=== PATIENT | male | born 2000 | race Caucasian/White ===

== ENCOUNTER 2021-06-13 17:19 | Emergency (ER) | payer OTHER ==
[~2021-06-13] VITALS: Ht 172.7 cm; Wt 95.7 kg
[2021-06-13 17:21] VITALS: BP 132/83
--- NOTE | 2021-06-13 17:40 | NUR ---
20 Y/O MALE BIB SELF C/O SOB TODAY, SATTING AT 99% ON ROOM AIR, LUNG SOUNDS CLEAR, DENIES ANY RUNNY NOSE/CONGESTION. PMH: DENIES NKA
[2021-06-13] MEDS ORDERED: NACL 0.9% 1,000 ML IV ONE (18:30)
[2021-06-13] MEDS ORDERED: ONDANSETRON 4 MG/2 ML VIAL IVP ONE (18:30)
--- NOTE | 2021-06-13 18:43 | NUR ---
RAD AT BEDSIDE
[2021-06-13 18:58] LABS: BASOPHILS # (AUTO) 0.3 K/uL (0.00-0.22); BASOPHILS % (AUTO) 1.7 % (0.0-2.0); EOSINOPHILS % (AUTO) 0.2 % (0.0-4.0); HEMATOCRIT 47.5 % (36-52); HEMOGLOBIN 16.5 g/dL (12.0-18.0); LYMPHOCYTES # (AUTO) 0.4 K/uL (2.0-11.5); LYMPHOCYTES % (AUTO) 2.8 % (20.5-51.1); MEAN CORPUSCULAR HEMOGLOBIN 31 pg (27-31); MEAN CORPUSCULAR HGB CONC 35 g/dL (33-37); MEAN CORPUSCULAR VOLUME 89.4 fL (80-94); MONOCYTES # (AUTO) 0.7 K/uL (0.8-1.0); MONOCYTES % (AUTO) 4.3 % (1.7-9.3); NEUTROPHILS # (AUTO) 13.7 K/uL (1.8-7.7); PLATELET COUNT (AUTO) 226 K/uL (140-450); RED BLOOD CELL COUNT(AUTO) 5.32 MIL/uL (4.20-6.10); RED CELL DISTRIBUTION WIDTH 12.3 % (11.6-13.7); WHITE BLOOD COUNT (AUTO) 15.1 K/uL (4.5-11.0)
--- NOTE | 2021-06-13 19:16 | NUR ---
REPORT RECEIVED ROM ANDREW REZA. CONTINUITY OF PT CARE AT THIS TIME.
--- NOTE | 2021-06-13 19:22 | NUR ---
Pt report given to TIARA SEGURA. Transfer of care at this time.
--- NOTE | 2021-06-13 19:24 | NUR ---
Note caryn in EDM - 06/13/21 at 2002 by DHRUV PT LAYING IN BED LOCKED IN LOWEST POSITION W X2 SIDERAILS UP FOR PT SAFETY. SEIZURE PRECAUTIONS IN PLACE. PT AWAKE, GCS 10, BREATHING EVEN AND UNLABORED. G TUBE IN PLACE. PT CONNECTED TO MONITOR, WILL CONTINUE TO MONITOR.
--- NOTE | 2021-06-13 19:59 | NUR ---
Note caryn in EDM - 06/13/21 at 2001 by DHRUV PT LAYING IN BED LOCKED IN LOWEST POSITION W X1 SIDERAIL UP. PT DENIES ANY ONGOING SOB, N/V. PT REPORTS FEELING BETTER DENIES ANY PAINOR CHEST PAIN. BREATHING EVEN AND UNLABORED. WILL CONTINUE TO MONITOR.
--- NOTE | 2021-06-13 21:22 | NUR ---
PT IV INFILTRATED, IV REMOVED W IV CATH INTACT. PER ERMD NO NEED TO INSERT NEW IV TO CONTINUE REMAINING BOLUS. WATER PO OFFERED TO PT. Addendum: 06/13/21 at 2132 by [facility] [facility] APPLIES
[2021-06-13 21:31] LABS: ALBUMIN 4.4 g/dL (3.4-5.0); ANION GAP 21.2 (8-16); CARBON DIOXIDE 17.9 mmol/L (21-32); CREATININE 1.1 mg/dL (0.6-1.3); MAGNESIUM 1.6 mg/dL (1.8-2.4); POTASSIUM 3.1 mmol/L (3.5-5.1)
[2021-06-13 21:32] LABS: PHOSPHORUS 1.1 mg/dL (2.5-4.9)
[2021-06-13] MEDS ORDERED: POTASSIUM CHLORIDE 10 MEQ TABER PO ONE (22:10)
[2021-06-13] MEDS ORDERED: ONDA-188 SL (22:14)
[2021-06-13 22:50] VITALS: BP 133/70
[2021-06-14] MEDS ORDERED: ONDA-188 SL (00:12)
== END 2021-06-13 22:50 | disposition home or self-care (01) ==
LOC: MED 17:19
DX: R11.2 Nausea with vomiting, unspecified (principal); E87.6 Hypokalemia; R00.0 Tachycardia, unspecified; Z90.49 Acquired absence of other specified parts of digestive tract; Z79.899 Other long term (current) drug therapy
CPT/HCPCS: 36415; 71045; 74018; 80053; 83690; 83735; 84100; 85025; 93005; 96361; 96374; 99285; J2405; J7030; Q0092

== ENCOUNTER 2022-01-31 21:33 | Emergency (ER) | payer OTHER ==
[~2022-01-31 21:33] MED LIST: ONDA-188 SL
--- NOTE | 2022-01-31 21:51 | NUR ---
PER ADMITING, LWBS
== END 2022-01-31 21:51 | disposition left against medical advice (07) ==
LOC: MED 21:33
DX: R11.10 Vomiting, unspecified (principal); Z53.21 Procedure and treatment not carried out due to patient leaving prior to being seen by health care provider